=== PATIENT | female | born 1955 | race Asian ===

== ENCOUNTER 2020-02-26 20:52 | Emergency (ER) | payer BC, OTHER ==
[2020-02-26 21:03] VITALS: TEMP 99.1; BMI 19.8
[2020-02-26] MEDS ORDERED: morphine CARPU-JECT 4 MG/1 ML DISP.SYRIN IVPUSH ONE ×2 (22:01→23:16)
[2020-02-26] MEDS ORDERED: morphine SULFATE 4 MG/ML VIAL ONE ×2 (22:21→23:23)
[2020-02-26] MEDS ORDERED: ONDANSETRON 4 MG/2 ML VIAL ONE ×2 (22:35→23:45)
[2020-02-26] MEDS: ONDANSETRON 4 MG/2 ML VIAL IVPUSH ONE ×2 (22:38→22:42)
[2020-02-26] MEDS ORDERED: ONDANSETRON 4 MG/2 ML VIAL IVPUSH ONE (23:55)
[2020-02-27] MEDS ORDERED: ONDANSETRON 4 MG/2 ML VIAL ONE (02:01)
[2020-02-27] MEDS ORDERED: ONDANSETRON 4 MG/2 ML VIAL IVPUSH ONE (02:01)
[2020-02-27 02:36] VITALS: BP 106/60; PULSE 90
== END 2020-02-27 02:41 | disposition home or self-care (01) ==
LOC: JER 20:52
PROC: 3E033NZ Introduction of Analgesics, Hypnotics, Sedatives into Peripheral Vein, Percutaneous Approach (ICD-10-PCS; principal; 2020-02-26)
PROC: 3E033NZ Introduction of Analgesics, Hypnotics, Sedatives into Peripheral Vein, Percutaneous Approach (ICD-10-PCS; 2020-02-26)
PROC: 3E033GC Introduction of Other Therapeutic Substance into Peripheral Vein, Percutaneous Approach (ICD-10-PCS; 2020-02-26)
PROC: 3E033GC Introduction of Other Therapeutic Substance into Peripheral Vein, Percutaneous Approach (ICD-10-PCS; 2020-02-26)
DX: S82.832A Other fracture of upper and lower end of left fibula, initial encounter for closed fracture (principal)
CPT/HCPCS: 73610-TC-LT-FY; 73630-TC-LT; 99284-25